=== PATIENT | female | born 1980 | race Caucasian/White ===

== ENCOUNTER 2023-09-26 06:57 | Emergency (ER) | payer BC ==
[2023-09-26] MEDS ORDERED: Diazepam 5 MG TAB ONE (07:10)
[2023-09-26] MEDS ORDERED: Ketorolac Tromethamine 60 MG/2 ML VIAL ONE (07:10)
== END 2023-09-26 08:14 | disposition home or self-care (01) ==
LOC: BURERS 06:57
DX: M54.16 Radiculopathy, lumbar region (principal); M51.86 Other intervertebral disc disorders, lumbar region; E03.9 Hypothyroidism, unspecified; Z79.899 Other long term (current) drug therapy
CPT/HCPCS: 96372; 99283; J1885